=== PATIENT | male | born 2000 | race Hispanic/Latino ===

== ENCOUNTER 2022-09-12 22:29 | Emergency (ER) | payer MEDICAID, OTHER ==
[~2022-09-12] VITALS: Ht 177.8 cm; Wt 97.5 kg
[2022-09-12 22:31] VITALS: BP 169/89
[2022-09-12] MEDS ORDERED: CEPH500B PO (23:18)
[2022-09-12] MEDS ORDERED: DIPH-1242 PO (23:19)
[2022-09-12] MEDS ORDERED: DiphenhydrAMINE HCL 50 MG/ML VIAL IM ONE (23:30)
== END 2022-09-12 23:31 | disposition home or self-care (01) ==
LOC: EDH 22:29
DX: T14.8XXA Other injury of unspecified body region, initial encounter (principal); L03.116 Cellulitis of left lower limb; L03.115 Cellulitis of right lower limb; I10 Essential (primary) hypertension; Z98.890 Other specified postprocedural states; Y92.89 Other specified places as the place of occurrence of the external cause
CPT/HCPCS: 99283; 96372; J1200